=== PATIENT | male | born 1995 | race Caucasian/White ===

== ENCOUNTER 2021-03-05 12:35 | Emergency (ER) | payer OTHER ==
[~2021-03-05] VITALS: Ht 167.6 cm; Wt 70.0 kg
[2021-03-05 12:55] VITALS: BP 144/87
[2021-03-05] MEDS ORDERED: ONDANSETRON HCL 4MG/2ML INJ IV STA (16:21)
[2021-03-05] MEDS ORDERED: ACETAMINOPHEN 325MG TABLET PO STA (16:21)
[2021-03-05] MEDS ORDERED: SODIUM CHLORIDE 0.9% 1,000 ML IV ONE (16:30)
== END 2021-03-05 16:22 | disposition left against medical advice (07) ==
LOC: ER 12:35
DX: R11.2 Nausea with vomiting, unspecified (principal); Z53.21 Procedure and treatment not carried out due to patient leaving prior to being seen by health care provider
CPT/HCPCS: J7030